=== PATIENT | female | born 1985 ===

== ENCOUNTER 2018-06-17 12:29 | Emergency (ER) | payer MEDICAID, OTHER ==
[2018-06-17 13:22] VITALS: BP 105/63; PULSE 89; RESP 20; TEMP 98; O2SAT 95
[2018-06-17 13:35] LABS: INFLUENZA A B NEGATIVE FOR FLU A/B (NEGATIVE)
--- NOTE | 2018-06-17 13:37 | C.PDOC ---
History Of Present Illness 33 y/o female, with no significant PMhx, presents to the ER complaining of sore throat which has been present for the past day. Patient states that the pain is worse with swallowing. Tolerating PO. Denies having difficulty breathing, fevers, chills, headache, neck pain, dizziness, visual changes, abdominal pain, vomiting, diarrhea, or any other associated symptoms. Time Seen by Provider: 06/17/18 12:40 Chief Complaint (Nursing): ENT Problem History Per: Patient History/Exam Limitations: no limitations Onset/Duration Of Symptoms: Days Current Symptoms Are (Timing): Still Present Severity: Moderate Past Medical History Reviewed: Historical Data, Nursing Documentation, Vital Signs Vital Signs: Last Vital Signs Temp 98.0 F 06/17/18 12:39 Pulse 89 06/17/18 12:39 Resp 20 06/17/18 12:39 BP 105/63 06/17/18 12:39 Pulse Ox 95 06/17/18 12:39 - Medical History PMH: No Chronic Diseases Other Surgeries: Hx of surgeries Family History: States: No Known Family Hx - Social History Hx Alcohol Use: Yes Hx Substance Use: No - Immunization History Hx Tetanus Toxoid Vaccination: No Hx Influenza Vaccination: No Hx Pneumococcal Vaccination: No Review Of Systems Except As Marked, All Systems Reviewed And Found Negative. Constitutional: Negative for: Fever, Chills Eyes: Negative for: Vision Change ENT: Positive for: Throat Pain Cardiovascular: Negative for: Chest Pain, Palpitations Respiratory: Negative for: Cough, Shortness of Breath Gastrointestinal: Positive for: Vomiting. Negative for: Nausea, Abdominal Pain, Diarrhea Musculoskeletal: Negative for: Neck Pain, Back Pain Skin: Negative for: Rash Neurological: Negative for: Weakness, Numbness, Headache, Dizziness Physical Exam - Physical Exam Appears: Well, Non-toxic, No Acute Distress Skin: Normal Color, Warm, Dry Head: Atraumatic, Normacephalic Eye(s): bilateral: Normal Inspection, PERRL, EOMI Ear(s): Bilateral: Normal Nose: Normal Oral Mucosa: Moist Tongue: Normal Appearing Lips: Normal Appearing Throat: Erythema, Exudate, No Drooling, No Mass, Other (bilateral tonsillar swelling) Neck: Normal, Normal ROM, Supple, Other (anterior cervical lymphadenopathy) Lymphatic: Adenopathy (anterior cervical lymphadenopathy) Chest: Symmetrical Cardiovascular: Rhythm Regular Respiratory: Normal Breath Sounds, No Rales, No Rhonchi, No Wheezing Gastrointestinal/Abdominal: No Tenderness, No Guarding, No Rebound Extremity: Normal ROM, Capillary Refill (<2s) Extremity: Bilateral: Atraumatic, No Pedal Edema, Normal Color And Temperature, Normal ROM Pulses: Left Radial: Normal, Right Radial: Normal Neurological/Psych: Oriented x3, Normal Speech, Normal Cognition, Normal Motor, Normal Sensation Gait: Steady ED Course And Treatment O2 Sat by Pulse Oximetry: 95 (RA) Pulse Ox Interpretation: Normal Medical Decision Making Medical Decision Making: Plan: * Rapid Strep * Rapid Flu * Ibuprofen Strep: neg Flu: neg Centor Score 3 - 28 to 35% chance of strep pharyngitis, will culture after negative rapid strep Diagnostic testing results and plan of care discussed with patient. Strict instructions given regarding prescription use, importance of followup, and signs/symptoms to return to ER including difficulty breathing, difficulty swallowing, fever, chills, or any other new/worsening symptoms. Pt verbalized understanding of discussion. Patient is A&Ox3, ambluating with steady gait, with vital signs stable for discharge. Disposition - Disposition Referrals: [facility] [Outside] Demetris Helton MD [Staff Provider] - Disposition: HOME/ ROUTINE Disposition Time: 13:50 Condition: GOOD Additional Instructions: Increase fluids Ibuprofen every 6-8 hours with food as needed for pain Take medrol dose pack as prescribed Followup with ENT within 2 days Followup with primary doctor or clinic within 2 days Return to ER for any new/worsening symptoms Prescriptions: Ibuprofen [Motrin Tab] 600 mg PO Q8H PRN #30 tab PRN Reason: Pain, Moderate (4-7) Methylprednisolone [Medrol Dose Pack (21 tabs)] 4 mg PO DAILY #21 mg Instructions: Viral Pharyngitis, Sore Throat in Adults Forms: [employer] (Albanian) - Clinical Impression Clinical Impression: Viral pharyngitis - PA / [employer] SUPERVISOR / Resident Statement MD/DO has reviewed & agrees with the documentation as recorded. - Scribe Statement The provider has reviewed the documentation as recorded by the Tori Hyde Provider Attestation All medical record entries made by the Scribe were at my direction and personally dictated by me. I have reviewed the chart and agree that the record accurately reflects my personal performance of the history, physical exam, medical decision making, and the department course for this patient. I have also personally directed, reviewed, and agree with the discharge instructions and disposition.
== END 2018-06-17 13:58 | disposition home or self-care (01) ==
LOC: C.ER 12:29
DX: J02.9 Acute pharyngitis, unspecified (principal)